=== PATIENT | male | born 1995 | race African-American/Black ===

== ENCOUNTER → 2022-09-20 11:05 | Outpatient (CLI) | payer OTHER, SELFPAY ==
--- NOTE | ~2022-09-20 | US_ITS ---
Renal-Bladder ultrasound Clinical History: Bladder wall thickening Technique: Real-time sonographic imaging of the kidneys and urinary bladder was performed. Findings: The right kidney measures 10.2 cm in length and the left kidney measures 11.7 cm. There is no hydronephrosis or renal calculus identified. Renal cortical echogenicity is within normal limits. No renal mass lesion is identified. The urinary bladder is partially distended at the time of this exam. No intraluminal echoes are ident ified. No abnormal wall thickening is seen. Impression: Unremarkable ultrasound of the kidneys and urinary bladder. Reviewed, dictated and finalized at location M. Impression: Unremarkable ultrasound of the kidneys and urinary bladder.
== END ==
PROVIDERS: PCP Urology; Visit Provider Urology
DX: N32.89 Other specified disorders of bladder (principal)
CPT/HCPCS: 76770